=== PATIENT | male | born 1980 | race American Indian/Alaskan Native ===

== ENCOUNTER 2017-09-21 14:24 | Emergency (ER) | payer OTHER ==
[2017-09-21 14:45] VITALS: BP 134/88
[2017-09-21] MEDS ORDERED: NORCO 7.5/325 PO ONE (16:50)
[2017-09-21] MEDS ORDERED: ZOFRAN ODT PO ONE (16:50)
[2017-09-21] MEDS ORDERED: ANTIBIOTIC OINT TP ONE (16:51)
--- NOTE | 2017-09-21 17:05 | XRay Report ---
FINAL REPORT EXAM: XR RIBS UNILAT 2V LT HISTORY: L side chest pain, fall TECHNIQUE: Frontal and oblique views of the left ribs PRIORS: None. FINDINGS: There is no evidence of acute displaced rib fracture. The ribs are partly obscured by superimposed anatomy. There is no pneumothorax, pulmonary consolidation to suggest contusion, or pleural effusion in the visualized chest. IMPRESSION: No visible acute displaced rib fracture
--- NOTE | 2017-09-21 17:06 | XRay Report ---
FINAL REPORT EXAM: XR HUMERUS 2+V LT HISTORY: fall, swelling, bruising TECHNIQUE: 2 views of the left humerus PRIORS: None. FINDINGS: There is no radiographic evidence of definite acute fracture or dislocation. No evidence of osseous lesion. Joint spaces are maintained. There is no evidence of significant degenerative arthrosis. IMPRESSION: No acute skeletal pathology
--- NOTE | 2017-09-21 17:06 | XRay Report ---
FINAL REPORT EXAM: XR KNEE 3V LT HISTORY: fall, bruising, swelling TECHNIQUE: 3 views of the left knee PRIORS: None. FINDINGS: There is no radiographic evidence of definite acute fracture or dislocation. No definite misalignment. No evidence of osseous lesion. Joint spaces are maintained. No evidence of synovial joint effusion. There is no evidence of significant arthrosis. IMPRESSION: No acute skeletal pathology
--- NOTE | 2017-09-21 17:08 | XRay Report ---
FINAL REPORT EXAM: XR TIBIA FIBULA 2V LT HISTORY: fall, swelling, bruising TECHNIQUE: 2 views of the left tibia and fibula PRIORS: Left knee 09/21/2017 FINDINGS: Nonspecific soft tissue ossification of the distal interosseous membrane between the tibia and fibula. This may be developmental variation or reflect old trauma. There is no radiographic evidence of definite acute fracture or dislocation. No evidence of osseous lesion. Joint spaces are maintained. There is no evidence of significant degenerative arthrosis. IMPRESSION: No acute skeletal pathology
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
== END 2017-09-21 19:30 | disposition home or self-care (01) ==
LOC: ED 14:24
DX: S70.312A Abrasion, left thigh, initial encounter (principal); I10 Essential (primary) hypertension; R07.81 Pleurodynia; M25.512 Pain in left shoulder; M25.562 Pain in left knee; W13.2XXA Fall from, out of or through roof, initial encounter; Y93.89 Activity, other specified; Y99.8 Other external cause status; Y92.89 Other specified places as the place of occurrence of the external cause
CPT/HCPCS: Q0162

== ENCOUNTER 2018-05-13 21:28 | Emergency (ER) | payer OTHER ==
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
[2018-05-13 22:08] LABS: Basophils # (Auto) 0.1 K/mm3 (0.0-0.1); Basophils % (Auto) 0.9 % (0.0-1.8); Eosinophils # (Auto) 0.3 K/mm3 (0.0-0.4); Eosinophils % (Auto) 4.2 % (0.0-4.3); Hematocrit 43.7 % (35.5-45.6); Hemoglobin 15.1 gm/dl (11.8-15.2); Lymphocytes # (Auto) 3.5 K/mm3 (1.2-5.4); Lymphocytes % (Auto) 48.9 % (13.4-35.0); Mean Corpuscular HGB Conc 35 % (32-34); Mean Corpuscular Volume 96 fl (84-94); Monocytes # (Auto) 0.7 K/mm3 (0.0-0.8); Monocytes % (Auto) 10.4 % (0.0-7.3); Platelet Count 260 K/mm3 (140-440); Red Blood Count 4.58 M/mm3 (3.65-5.03)
[2018-05-13 22:27] LABS: Alanine Aminotransferase 35 units/L (7-56); Albumin 3.9 g/dL (3.9-5); BUN/Creatinine Ratio 12; Blood Urea Nitrogen 12 mg/dL (9-20); Calcium 8.8 mg/dL (8.4-10.2); Hemolysis Index 71
[2018-05-13 22:30] LABS: Bilirubin,Direct < 0.2 mg/dL (0-0.2)
[2018-05-13 23:00] LABS: Creatine Kinase MB 6.1 ng/mL (0.0-4.0)
[2018-05-13] MEDS ORDERED: TORADOL IV ONE (23:02)
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
[2018-05-14 00:54] VITALS: BP 177/117
== END 2018-05-14 01:00 | disposition left against medical advice (07) ==
LOC: ED 21:28
DX: R51 Headache (principal); R07.89 Other chest pain; I10 Essential (primary) hypertension; E66.9 Obesity, unspecified; Z68.37 Body mass index [BMI] 37.0-37.9, adult; F17.200 Nicotine dependence, unspecified, uncomplicated; W86.1XXA Exposure to industrial wiring, appliances and electrical machinery, initial encounter; Y93.89 Activity, other specified; Y92.69 Other specified industrial and construction area as the place of occurrence of the external cause; Y99.8 Other external cause status
CPT/HCPCS: 36415; 70450; 71046; 80048; 80076; 82550; 82553; 84484; 85025; 93005; 93010; 96374; 99284; J1885